=== PATIENT | male | born 1950 | race African-American/Black ===

== ENCOUNTER 2025-09-09 19:52 | Inpatient (IN) | payer MEDICARE ==
[~2025-09-09] VITALS: Ht 172.7 cm; Wt 52.6 kg
[2025-09-09 19:55] VITALS: O2SAT 99
[2025-09-09] MEDS: KETOROLAC 30MG/ML VIAL IM ONE (21:00)
[2025-09-09 21:33] LABS: BASOPHILS % 0.8 % (0.0-2.0); EOSINOPHILS % 6.3 % (0.0-5.0); HEMATOCRIT. 40.7 % (42.0-52.0); HEMOGLOBIN. 13.2 g/dL (14.0-18.0); LYMPHOCYTES % 12.2 % (20.0-50.0); MEAN PLATELET VOLUME 8.3 fl (7.4-10.4); MONOCYTES % 7.9 % (2.0-8.0); NEUTROPHILS % 72.8 % (40.0-76.0); PLATELET 320 x1000/uL (130-400); RED BLOOD CELL COUNT 4.55 mill/uL (4.7-6.1); RED CELL DISTRIBUTION WIDTH 13.9 % (11.6-14.6)
[2025-09-09 21:42] LABS: CREATININE 1.1 mg/dL (0.6-1.3); UREA NITROGEN BLOOD 9 mg/dL (9-23)
[2025-09-09 21:43] LABS: CLARITY URINE CLOUDY (CLEAR); COLOR URINE YELLOW (YELLOW); GLUCOSE URINE NEGATIVE (NEGATIVE); KETONES URINE NEGATIVE (NEGATIVE); LEUKOCYTE ESTERASE URINE 3+ (NEGATIVE); NITRITE URINE NEGATIVE (NEGATIVE); OCCULT BLOOD URINE 1+ (NEGATIVE); PH URINE 6.5 (4.5-8.0); PROTEIN URINE TRACE (NEGATIVE); SPECIFIC GRAVITY URINE 1.006 (1.005-1.030); UROBILINOGEN URINE 1.0 E.U./dL (0.2-1.0)
[2025-09-09 21:43] LABS: PROTEIN TOTAL 7.3 g/dL (6.0-8.3)
[2025-09-09 21:44] LABS: ASPARTATE AMINOTRANSFERASE 17 IU/L (<34); BILIRUBIN DIRECT < 0.1 mg/dL (<=3.0); BILIRUBIN TOTAL 0.4 mg/dL (0.1-1.0)
[2025-09-09 21:55] LABS: BACTERIA URINE 2+; SQUAMOUS EPITHELIAL CELL URINE FEW /lpf (RARE/1+)
[2025-09-09 21:56] LABS: WBC URINE TNTC /hpf (0-2)
[2025-09-09] MEDS: IOHEXOL-300 100 ML BOTTLE ONE (23:10)
[2025-09-10] MEDS: MORPHINE SULFATE 4 MG/ML INJ (FOR IV/IM USE) IV ONE
[2025-09-10] MEDS: SODIUM CHLORIDE 0.9% (SEPSIS BOLUS) IV ONE (00:18)
[2025-09-10] MEDS: PIPERACILLIN/TAZO 3.375G/50ML 50 ML IV ONE (00:19)
[2025-09-10] MEDS: VANCOMYCIN 1G PREMIX 200 ML IV ONE (01:08)
[2025-09-10 01:10] LABS: INR 1.0
[2025-09-10] MEDS: MORPHINE SULFATE 4 MG/ML INJ (FOR IV/IM USE) IV NR (02:45)
[2025-09-10 04:37] VITALS: BP 126/66; PULSE 62; RESP 18; TEMP 36.3068
[2025-09-10] MEDS ORDERED: IPRATROPIUM/ALBUTEROL 0.5-3(2.5)MG/3ML NEB HHN PRN (06:00)
[2025-09-10] MEDS ORDERED: CLONIDINE 0.1MG TABLET PO PRN (06:00)
[2025-09-10] MEDS ORDERED: ALBUTEROL (0.083%) 2.5MG/3ML NEB HHN PRN (06:00)
[2025-09-10] MEDS ORDERED: ONDANSETRON HCL 4MG/2ML INJ IV PRN (06:00)
[2025-09-10] MEDS: HYDROCODONE/ACETAMINOPHEN 5/325MG TABLET PO PRN (06:19)
[2025-09-10 08:00] VITALS: BP 113/57; PULSE 63; RESP 18; TEMP 36.7; O2SAT 98
[2025-09-10] MEDS: FLUTICASONE PROPIONATE 50MCG/SPRAY BOTTLE BOTHNSTRLS SCH (09:00)
[2025-09-10] MEDS: ENOXAPARIN 40MG/0.4ML SYR SUBCUT SCH (09:00)
[2025-09-10 09:53] LABS: HEPATITIS C AB NON REACTIVE (Neg) (Negative)
[2025-09-10] MEDS ORDERED: NALOXONE HCL 0.4MG/ML VIAL IV PRN (10:45)
[2025-09-10] MEDS: FINASTERIDE 5MG TABLET PO SCH (10:46)
[2025-09-10] MEDS: PREDNISONE 20MG TABLET PO SCH (10:47)
[2025-09-10] MEDS: TAMSULOSIN HCL 0.4MG SR CAPSULE PO SCH (10:47)
[2025-09-10 11:34] LABS: BASOPHILS % 0.5 % (0.0-2.0); EOSINOPHILS % 5.6 % (0.0-5.0); HEMATOCRIT. 37.2 % (42.0-52.0); HEMOGLOBIN. 12.1 g/dL (14.0-18.0); LYMPHOCYTES % 13.0 % (20.0-50.0); MEAN PLATELET VOLUME 8.8 fl (7.4-10.4); MONOCYTES % 8.1 % (2.0-8.0); NEUTROPHILS % 72.8 % (40.0-76.0); PLATELET 286 x1000/uL (130-400); RED BLOOD CELL COUNT 4.18 mill/uL (4.7-6.1); RED CELL DISTRIBUTION WIDTH 13.3 % (11.6-14.6)
[2025-09-10 12:00] VITALS: BP 121/60; PULSE 68; RESP 18; TEMP 35.8; O2SAT 99
[2025-09-10 12:02] LABS: CREATININE 1.0 mg/dL (0.6-1.3)
[2025-09-10 12:03] LABS: UREA NITROGEN BLOOD 9 mg/dL (9-23)
[2025-09-10 16:00] VITALS: BP 119/71; PULSE 72; RESP 18; TEMP 36.6; O2SAT 100
[2025-09-10] MEDS: PIPERACILLIN/TAZO 3.375G/50ML 50 ML IV SCH (16:44)
[2025-09-10 20:00] VITALS: BP 99/59; PULSE 73; RESP 19; TEMP 36.1; O2SAT 97
[2025-09-10 23:36] VITALS: BP 101/56; PULSE 81; RESP 20; TEMP 36.1; O2SAT 99
[2025-09-11] MEDS: VANCOMYCIN 1G PREMIX 200 ML IV NR (00:07)
[2025-09-11 04:00] VITALS: BP 106/49; PULSE 53; RESP 20; TEMP 36.1; O2SAT 98
[2025-09-11 08:00] VITALS: BP 110/53; PULSE 59; RESP 20; TEMP 36.4; O2SAT 98
[2025-09-11] MEDS: ERGOCALCIFEROL 50000UNITS CAPSULE PO SCH (09:28)
[2025-09-11] MEDS: VANCOMYCIN 500MG PREMIX 100 ML IV SCH (10:21)
[2025-09-11] MEDS: ENOXAPARIN 30MG/0.3ML SYR SUBCUT SCH (10:23)
[2025-09-11 12:00] VITALS: BP 108/54; PULSE 58; RESP 19; TEMP 36.5; O2SAT 98
[2025-09-11] MEDS ORDERED: TAMS-54 PO (15:24)
[2025-09-11] MEDS ORDERED: FINA5TAB11 PO (15:24)
[2025-09-11] MEDS ORDERED: LEVO-65 MT (15:24)
[2025-09-11 16:22] VITALS: BP 125/76; PULSE 72; RESP 16; TEMP 97.6
[2025-09-11] MEDS ORDERED: VANCOMYCIN 500MG PREMIX 100 ML IV SCH (21:00)
== END 2025-09-11 18:55 | disposition home or self-care (01) | DRG 603 ==
LOC: ER 19:52 → 7EST 09-10 01:16 → EDBEDREQ 09-10 01:20 → EDBEDREQTM 09-10 01:20 → ENRESERV 09-10 02:19
PROVIDERS: ADMIT Internal Medicine; ATTEND Internal Medicine
DX: L02.215 Cutaneous abscess of perineum (principal); F17.210 Nicotine dependence, cigarettes, uncomplicated; N49.2 Inflammatory disorders of scrotum; N40.0 Benign prostatic hyperplasia without lower urinary tract symptoms; Z87.442 Personal history of urinary calculi
CPT/HCPCS: 36415; 71045; 72193; 80048; 80076; 81003; 83605; 84145; 85025; 86705; 87070; 87077; 87186; 87340; 96372; 99285; J1650; J1885; J2270; J2543; J3373; J7030; J7512; Q9967